=== PATIENT | male | born 2000 | race Caucasian/White ===

== ENCOUNTER 2019-09-29 02:59 | Emergency (ER) | payer BC ==
[~2019-09-29] VITALS: Ht 182.9 cm; Wt 72.7 kg
[2019-09-29 03:06] VITALS: TEMP 97.1
[2019-09-29] MEDS ORDERED: PREDNISONE20 MG PO (03:40)
[2019-09-29 04:27] VITALS: BP 128/82; PULSE 76
== END 2019-09-29 04:27 | disposition home or self-care (01) ==
LOC: COL.ER 02:59
DX: J45.901 Unspecified asthma with (acute) exacerbation (principal)
CPT/HCPCS: J7512